=== PATIENT | female | born 1990 | race Caucasian/White ===

== ENCOUNTER 2017-07-30 17:06 | Emergency (ER) | payer SELFPAY ==
[2017-07-30] MEDS ORDERED: PENICILLIN V POTASSIUM 500 MG TABLET PO ONE (17:55)
[2017-07-30] MEDS ORDERED: BUPIVACAINE HCL 0.5 % INJ/PF 30 ML SDV INJ ONE (17:55)
[2017-07-30] MEDS ORDERED: ACETAMINOPHEN WITH CODEINE #3 TABLET PO ONE (17:55)
--- NOTE | 2017-07-30 18:39 | ER Document Report ---
HPI - HPI Pain Level: 3 Context: Patient is a 27-year-old female presents emergency department complaining of right upper tooth pain at tooth #4 for the past couple of days denies any fevers , difficulty swallowing, difficulty breathing. She denies any purulent drainage or foul odor. - EENT EENT: DENIES: Sore Throat Past Medical History - Social History Smoking Status: Never Smoker Chew tobacco use (# tins/day): No Frequency of alcohol use: None Drug Abuse: None Family History: Reviewed & Not Pertinent Patient has suicidal ideation: No Patient has homicidal ideation: No Renal/ Medical History: Denies: Hx Peritoneal Dialysis Musculoskeltal Medical History: Reports Hx Arthritis - rheumatoid Past Surgical History: Reports: Hx Cholecystectomy Vertical Provider Document - CONSTITUTIONAL Agree With Documented VS: Yes Notes: PHYSICAL EXAM GENERAL: Alert, interacts well. HEENT: NCAT, tenderness over gingiva overlying tooth #4 without evidence of abscess MMM, Uvula midline. Airway patent. No evidence of tonsillar enlargement , peritonsillar abscess, retropharyngeal abscess. LUNGS: Clear to auscultation bilaterally, no wheezes, rales, or rhonchi. No respiratory distress. HEART: Regular rate and rhythm. No murmurs, gallops, or rubs. NEUROLOGICAL: Alert and oriented x4. Normal speech. PSYCH: Normal affect, normal mood. SKIN: Warm, dry, normal turgor. No rashes or lesions noted. - INFECTION CONTROL TRAVEL OUTSIDE OF THE [place] IN LAST 30 DAYS: No - RESPIRATORY O2 Sat by Pulse Oximetry: 100 Course - Re-evaluation Re-evalutation: 07/30/17 18:38 Presentation is most consistent with likely an infected tooth. Airway is patent. Vitals within normal limits. Patient is able swallow without any difficulty. There is no significant facial swelling. Patient will be started on antibiotics. I've instructed to follow-up with dentistry as earliest ability for definitive management. Return precautions and follow-up recommendations have been discussed at length. - Vital Signs Vital signs: Temp Pulse Resp BP Pulse Ox 98.5 F 95 20 141/88 H 100 07/30/17 17:36 07/30/17 17:36 07/30/17 17:36 07/30/17 17:36 07/30/17 17:36 Procedures - Additional Procedures Dental block Additional Procedures: Other Discharge - Discharge Clinical Impression: Toothache Condition: Good Disposition: HOME, SELF-CARE Additional Instructions: You have been seen for dental pain. It is very important that you follow-up with a dentist for definitive care. Please return if you develop fever greater than 101, swelling in your face, vomiting, difficulty breathing or swallowing, or any other symptoms that are concerning to you. For pain you should take ibuprofen 600 mg every 6 hours as needed. [facility] [address] [place], [place] Wednesday mornings, by appointment [facility] [address] [place] [address] Pending Sale To [facility] [address] [facility] [address] [facility] [address] [email or web address] [address] [place] [address] Wednesday- 8:00am to 5:00 pm Will see patients from other [facility]. Charges based on income and family size and accepts Medicare, Medicaid, and Insurances Will pull molars [facility] [address] Hours of Operation 8:00 am - 4:30 pm weekdays The following dental offices accept Medicaid: [facility] Dr. Decker Dr. Jauregui Dr. Nunez Dr. Chand Yovany Thomas, Jay, and [place] oral surgery Dr. Beltran ([place]) Dr. Britton ([place]) [facility] Drs. YayoCharly ([place]) Dr. Best ([place]) [facility] Dr. Conde ([place]) Drs. López and ([place]) Medicaid Care Line Prescriptions: Penicillin V Potassium [Penicillin Vk 500 mg Tablet] 500 mg PO TID 7 Days #21 tablet Forms: Elevated Blood Pressure
[2017-07-30 19:26] VITALS: BP 126/73
== END 2017-07-30 19:24 | disposition home or self-care (01) ==
LOC: ER 17:06
PROC: 3E0T3BZ Introduction of Anesthetic Agent into Peripheral Nerves and Plexi, Percutaneous Approach (ICD-10-PCS; principal; 2017-07-30)
DX: K08.89 Other specified disorders of teeth and supporting structures (principal)
CPT/HCPCS: 99282; 64400; J3490